=== PATIENT | female | born 1965 | race Caucasian/White ===

== ENCOUNTER 2022-01-22 18:46 | Emergency (ER) | payer MEDICARE ==
[2022-01-22 19:11] LABS: BASOPHIL 0.7 % (0-2); EOSINOPHIL 2.3 % (0-5); HCT 35.6 % (37.0-47.0); HGB 12.1 g/dl (12.5-16.0); LYMPHOCYTE 44.1 % (15-48); MCH 30.1 pg (25.0-31.0); MCV 88.6 fL (78.0-100.0); MPV 10.4 fL (6.0-9.5); NEUTROPHIL 46.6 % (41-80); NRBC 0; PLT 290 K/uL (150-400); RBC 4.02 M/uL (4.20-5.40); RDW 12.8 % (11.5-14.0)
[2022-01-22 19:42] LABS: ALBUMIN 3.8 g/dL (3.4-5.0); BILIRUBIN - TOTAL 0.3 mg/dL (0.2-1.0); BUN/CREAT RATIO (CALC) 23.6 RATIO; CREATININE 0.72 mg/dL (0.51-0.95); POTASSIUM 3.7 mmol/L (3.5-5.1); TOTAL PROTEIN 6.8 g/dL (6.4-8.2)
[2022-01-22 20:29] LABS: CORONAVIRUS 2019 SARS-COV-2 NEGATIVE (NEGATIVE); INFLUENZA A NAA NEGATIVE (NEGATIVE)
[2022-01-22 21:18] LABS: BILIRUBIN NEGATIVE (NEGATIVE); BLOOD NEGATIVE Ery/uL (NEGATIVE); CLARITY CLEAR (CLEAR); COLOR YELLOW (YELLOW); GLUCOSE (U) NORMAL (NORMAL); LEUKOCYTES NEGATIVE Leu/uL (NEGATIVE); NITRITE NEGATIVE (NEGATIVE); PROTEIN NEGATIVE (NEGATIVE); SPECIFIC GRAVITY <=1.005 (1.001-1.030); UROBILINOGEN 0.2 mg/dL (0.2-1.0)
[2022-01-22 21:23] LABS: URINARY WBC RARE
== END 2022-01-22 21:30 | disposition other institution (70) ==
LOC: FER 18:46
PROVIDERS: Emergency Medicine
DX: I63.9 Cerebral infarction, unspecified (principal); R20.2 Paresthesia of skin; R29.701 NIHSS score 1; I10 Essential (primary) hypertension; Z20.822 Contact with and (suspected) exposure to COVID-19
CPT/HCPCS: 36415; 70450; 80053; 81001; 84484; 85025; 93005; J7030; Q9967; U0002